=== PATIENT | male | born 1955 | race Caucasian/White ===

== ENCOUNTER 2021-01-02 23:13 | Inpatient (IN) | payer MEDICARE ==
[~2021-01-02] VITALS: Ht 185.4 cm; Wt 158.8 kg
[2021-01-03] MEDS ORDERED: BENICAR HCT 401 EACH PO (02:56)
[2021-01-03] MEDS ORDERED: PREDNISONE5 MG PO (02:57)
[2021-01-03] MEDS ORDERED: VITAMIN C250 MG PO (02:58)
[2021-01-03] MEDS ORDERED: ZYLOPRIM 300 M300 MG PO (02:58)
[2021-01-03] MEDS ORDERED: BROMPHENIR-PSE118 ML PO (02:59)
[2021-01-03] MEDS ORDERED: CLOPIDOGREL75 MG PO (03:00)
[2021-01-03] MEDS ORDERED: DULOXETINE HCL20 MG PO (03:00)
[2021-01-03] MEDS ORDERED: METFORMIN HCL1000 MG PO (03:00)
[2021-01-03] MEDS ORDERED: VITAMIN D21250 MCG PO (03:01)
[2021-01-03] MEDS ORDERED: FOLIC ACID 1 MG1 MG PO (03:02)
[2021-01-03] MEDS ORDERED: LEVOTHYROXINE25 MCG PO (03:02)
[2021-01-03] MEDS ORDERED: METOPROLOL SUCC25 MG PO (03:02)
[2021-01-03] MEDS ORDERED: DIABETA 5 MG TAB5 MG PO (03:02)
[2021-01-03] MEDS ORDERED: CRESTOR20 MG PO ×2 (03:02→03:03)
[2021-01-03] MEDS ORDERED: ZINC SULFATE50 M1 PO (03:03)
[2021-01-03] MEDS ORDERED: VITAMIN B COMP1 EAC1 PO (03:03)
[2021-01-03] MEDS ORDERED: HYDROCODON-ACE1 EAC6 PO (14:39)
--- NOTE | 2021-01-03 22:54 | NUR ---
ATTEMPTED TO CONTACT DAUGHTER TO MAKE HER AWARE OF CHANGES IN PATIENTS RESPIRATORY STATUS. INCREASED BIPAP SETTINGS AND NO CHANGE IN 02 SATURATION.
--- NOTE | 2021-01-04 00:22 | NUR ---
DR. HARMON CONTACTED ABOUT CONTINUED DROP IN SAT AND NURSE WAS TOLD TO CONTACT ED DOC TO INTUBATE PATIENT. DR. CAMERON ARRIVED TO FLOOR AT APPROXIMATELY [address]. AT 0 35 MG OF ETOMIDATE WAS GIVEN. AT 0 100 MG OF SUCC WAS GIVEN. TUBE WAS ADVANCED AND WAS SECURED AT 23 @THE LIP. 50 MG OF ROCURONIUM WAS GIVEN WELL. A STAT CXR WAS OBTAINED AND PATIENT WAS TRANSFERRED TO ICU- ROOM 2111. REPORT WAS GIVEN TO LUI HA @ APPROX. [id number].
[2021-01-04 05:22] LABS: HEMOGLOBIN 14.2 gm/dl (14.0-17.5); RED BLOOD COUNT 4.72 M/UL (4.20-5.50)
[2021-01-05 04:31] LABS: HEMOGLOBIN 14.1 gm/dl (14.0-17.5); RED BLOOD COUNT 4.62 M/UL (4.20-5.50); WHITE BLOOD COUNT 19.5 K/UL (4.5-11.0)
[2021-01-05 16:34] LABS: HEMOGLOBIN 14.2 gm/dl (14.0-17.5); RED BLOOD COUNT 4.52 M/UL (4.20-5.50); WHITE BLOOD COUNT 21.8 K/UL (4.5-11.0)
--- NOTE | 2021-01-05 18:56 | NUR ---
1715: PT UNPRONED, ALLEVYNS IN PLACE ON BILAT KNEES, BILAT FEET, SHOULDERS, PILLOWS IN PLACE, BILAT KNEE TISSUE INJURY FOUND WHEN ALLEVYNS REMOVED, PICTURES TAKEN
[2021-01-06 01:14] LABS: HEMOGLOBIN 13.5 gm/dl (14.0-17.5); RED BLOOD COUNT 4.37 M/UL (4.20-5.50); WHITE BLOOD COUNT 25.6 K/UL (4.5-11.0)
[2021-01-06 10:48] LABS: HEMOGLOBIN 13.3 gm/dl (14.0-17.5); RED BLOOD COUNT 4.33 M/UL (4.20-5.50); WHITE BLOOD COUNT 25.3 K/UL (4.5-11.0)
[2021-01-07 04:12] LABS: HEMOGLOBIN 13.3 gm/dl (14.0-17.5); RED BLOOD COUNT 4.31 M/UL (4.20-5.50); WHITE BLOOD COUNT 24.1 K/UL (4.5-11.0)
[2021-01-08 06:55] LABS: HEMOGLOBIN 13.7 gm/dl (14.0-17.5); RED BLOOD COUNT 4.46 M/UL (4.20-5.50); WHITE BLOOD COUNT 29.6 K/UL (4.5-11.0)
[2021-01-08 11:13] LABS: VITAMIN D, 25-HYDROXY 8.2 ng/mL (30.0-100.0)
[2021-01-08 12:13] LABS: HBSAG SCREEN Negative (Negative); HEP A AB, IGM Negative (Negative); HEP B CORE AB, IGM Negative (Negative); HEP C VIRUS AB <0.1 (0.0-0.9)
[2021-01-09 05:20] LABS: HEMOGLOBIN 12.3 gm/dl (14.0-17.5); RED BLOOD COUNT 4.11 M/UL (4.20-5.50)
[2021-01-09 05:49] LABS: WHITE BLOOD COUNT 33.7 K/UL (4.5-11.0)
[2021-01-10 05:22] LABS: HEMOGLOBIN 11.6 gm/dl (14.0-17.5); RED BLOOD COUNT 3.93 M/UL (4.20-5.50)
[2021-01-10 05:38] LABS: WHITE BLOOD COUNT 33.8 K/UL (4.5-11.0)
--- NOTE | 2021-01-11 04:24 | NUR ---
DISCUSSED WITH FAMILY COMFORT MEASURES, PROVIDED WITH INFORMATION, FAMILY AGREES TO COMFORT MEASURES WITH DISCONTINUATION OF ALL ORDER AND MEDICATIONS EXCEPT DIPRIVAN AND ET TUBE
--- NOTE | 2021-01-11 04:27 | NUR ---
DISCUSSION WITH FAMILY, FAMILY WOULD LIKE PATIENT TO BE DNR, TELEPHONE ORDER DR RUSSO CONFIRM DNR
--- NOTE | 2021-01-11 10:39 | NUR ---
EXPIRATION 913, EXTUBATED AND PLACE ON NON REBREATHER PER MD 913, MORPHINE 4 MG IV PUSH PER AND PATINET, COMFORT CARE ORDERS 938, TIME OF . ASYTOLE, NO HEART TONE, NO BREATH TONES, NO COR. REFLEXES, VERIFIED AND CONFIRMED BY TWO NURSES AT BEDSIDE, FAMILY AT BEDSIDE, NOTIFIED 1018, SHANIQUE CONTACTED, NOT APPROVED 1030, HOME CONTACTED, FAMILY AT BEDSIDE UNTIL HOME ARRIVES
== END 2021-01-11 09:39 | disposition expired | DRG 870 ==
LOC: PROG CARE 23:13 → CCU 01-03 02:47
PROVIDERS: Internal Medicine; Internal Medicine Nephrology; Internal Medicine Pulmonary Disease; ADMIT Internal Medicine
PROC: 8E0ZXY6 Isolation (ICD-10-PCS; principal; 2021-01-03)
PROC: 5A1955Z Respiratory Ventilation, Greater than 96 Consecutive Hours (ICD-10-PCS; 2021-01-03)
PROC: XW033E5 Introduction of Remdesivir Anti-infective into Peripheral Vein, Percutaneous Approach, New Technology Group 5 (ICD-10-PCS; 2021-01-03)
PROC: 3E0333Z Introduction of Anti-inflammatory into Peripheral Vein, Percutaneous Approach (ICD-10-PCS; 2021-01-03)
PROC: XW033H5 Introduction of Tocilizumab into Peripheral Vein, Percutaneous Approach, New Technology Group 5 (ICD-10-PCS; 2021-01-03)
PROC: 0BH17EZ Insertion of Endotracheal Airway into Trachea, Via Natural or Artificial Opening (ICD-10-PCS; 2021-01-03)
PROC: 5A0935A Assistance with Respiratory Ventilation, Less than 24 Consecutive Hours, High Flow/Velocity Cannula (ICD-10-PCS; 2021-01-03)
PROC: 02HV33Z Insertion of Infusion Device into Superior Vena Cava, Percutaneous Approach (ICD-10-PCS; 2021-01-04)
PROC: B548ZZA Ultrasonography of Superior Vena Cava, Guidance (ICD-10-PCS; 2021-01-04)
PROC: B24BZZZ Ultrasonography of Heart with Aorta (ICD-10-PCS; 2021-01-04)
PROC: 02HV33Z Insertion of Infusion Device into Superior Vena Cava, Percutaneous Approach (ICD-10-PCS; 2021-01-06)
PROC: B548ZZA Ultrasonography of Superior Vena Cava, Guidance (ICD-10-PCS; 2021-01-06)
PROC: 05HN33Z Insertion of Infusion Device into Left Internal Jugular Vein, Percutaneous Approach (ICD-10-PCS; 2021-01-06)
PROC: B544ZZA Ultrasonography of Left Jugular Veins, Guidance (ICD-10-PCS; 2021-01-06)
PROC: 5A1D70Z Performance of Urinary Filtration, Intermittent, Less than 6 Hours Per Day (ICD-10-PCS; 2021-01-06)
PROC: 5A1D70Z Performance of Urinary Filtration, Intermittent, Less than 6 Hours Per Day (ICD-10-PCS; 2021-01-09)
PROC: 0DH63UZ Insertion of Feeding Device into Stomach, Percutaneous Approach (ICD-10-PCS; 2021-01-09)
PROC: 3E0G76Z Introduction of Nutritional Substance into Upper GI, Via Natural or Artificial Opening (ICD-10-PCS; 2021-01-09)
DX: A41.89 Other specified sepsis (principal); U07.1 COVID-19; J12.82 Pneumonia due to coronavirus disease 2019; N17.0 Acute kidney failure with tubular necrosis; J80 Acute respiratory distress syndrome; K92.2 Gastrointestinal hemorrhage, unspecified; E87.1 Hypo-osmolality and hyponatremia; Z68.42 Body mass index [BMI] 45.0-49.9, adult; E87.4 Mixed disorder of acid-base balance; Z23 Encounter for immunization; Z66 Do not resuscitate; Z51.5 Encounter for palliative care; R65.20 Severe sepsis without septic shock; I10 Essential (primary) hypertension; J60 Coalworker's pneumoconiosis; I48.0 Paroxysmal atrial fibrillation; E78.5 Hyperlipidemia, unspecified; E03.9 Hypothyroidism, unspecified; M10.9 Gout, unspecified; F41.9 Anxiety disorder, unspecified; F32.A Depression, unspecified; E11.65 Type 2 diabetes mellitus with hyperglycemia; E87.6 Hypokalemia; G89.29 Other chronic pain; E66.9 Obesity, unspecified; F10.10 Alcohol abuse, uncomplicated; E83.39 Other disorders of phosphorus metabolism; I25.10 Atherosclerotic heart disease of native coronary artery without angina pectoris; Z95.5 Presence of coronary angioplasty implant and graft; Z86.718 Personal history of other venous thrombosis and embolism; Z79.01 Long term (current) use of anticoagulants; Z82.49 Family history of ischemic heart disease and other diseases of the circulatory system; Z79.4 Long term (current) use of insulin
CPT/HCPCS: ECHO; 31500; 36415; 36600; 71045; 80048; 80053; 80074; 80202; 82009; 82436; 82550; 82553; 82570; 82652; 82803; 82962; 83605; 83735; 83880; 83970; 84100; 84133; 84156; 84300; 84484; 85025; 85027; 85610; 85730; 86140; 87040; 87070; 87205; 89050; 90935; 90937; 93005; 93306; 94002; 94003; 94640; 94660; 94664; 94760; A6212; C1752; C9113; J0456; J0610; J0636; J0696; J1100; J1335; J1644; J1650; J1940; J2185; J2270; J2370; J2704; J3370; J7030; J7050; J7070; P9047; Q0249; Q9957